=== PATIENT | male | born 1985 | race Caucasian/White ===

== ENCOUNTER 2024-12-18 06:56 | Emergency (ER) | payer MEDICAID ==
[~2024-12-18] VITALS: Ht 188 cm; Wt 92.7 kg
[2024-12-18] MEDS ORDERED: NO HOME MEDS (07:06)
--- NOTE | 2024-12-18 07:31 | Physician Documentation ---
History of Present Illness ~ Chief Complaint: 5150 Stated Complaint: 5150 Time Seen by MD: 07:17 Source: patient, other (5150 form) Mode of Arrival: Ambulatory, Police HPI Patient brought to the ED on a 5150 involuntary psychiatric hold, when he was found with some disorganized thinking, and aggressive, yelling in public. He was brought in by law enforcement, and was initially quite agitated but is now calm and cooperative. His only complaint is concern for his dog, which has been taken to [facility] and is being cared for. He has been made aware. No physical complaints at this time. Patient admits to a prior history of mental health issues, and tells me he has been off his medications for a month because they made him twitch. Pt exhibits tangential thinking during my interview with him, talking about cows and DNA and mistaken identities, and veers off in conversation to talk about how we are not helping him to find missing friends in another state. Pt demanding that we "give him his DNA report" and expressing paranoid ideation, stating that we need to check the DNA of all persons in the area. Medication Reconciliation Allergies: Coded Allergies: oxycodone (Unverified Allergy, Unknown, 12/18/24) Miscellaneous Medications Home Med List (No Home Medications), (Reported) Past Medical History Past Medical History: *PSYCH* (Pt admits to unspecified prior "mental health" diagnosis) Smoking Status: Never smoker Alcohol Use: None Drug Use: marijuana Physical Exam Vital Signs: Temperature: 98.0, Source: Oral, Heart Rate: 100, Respiratory Rate: 16, BP: 134/62, Pulse Oximetry: 95, Weight: 92.730 Oxygen Flow Rate: 0 Physical Exam General: Pt is awake, alert, oriented x4 in no acute distress and well appearing. He answers questions appropriately but tends to go off on nonsensical tangents. Head: Normocephalic and atraumatic. Eyes: Conjunctiva normal. ENT: Mucous membranes moist. Neck: Supple. Chest: Clear to auscultation bilaterally, without rales, rhonchi, or wheezes. There is no accessory muscle use or retractions. Cardiac: Regular rate and rhythm without murmurs, gallops or rubs. Palpation of the chest wall is normal. Abd: Soft, nondistended, nontender, with normoactive bowel sounds. No guarding or rebound. Extremities: Within normal limits without cyanosis, clubbing, or edema. Skin: [place], warm and dry with no significant rash appreciated. Neuro: Cranial nerves II-XII grossly intact. The gait is normal. Progress Results/Orders Results/Orders Orders - MATILDA WILLIS MD [facility] Rec (12/18/24 07:09) Close Observation Level (12/18/24 07:09) Covid19 Binax Poc Result Entry (12/18/24 07:09) Regular Diet (12/18/24 Lunch) Completed Orders - MATILDA WILLIS MD Cbc/Diff (12/18/24 07:09) Urinalysis (12/18/24 07:09) Drug Screen, Urine (12/18/24 07:09) Ethanol (12/18/24 07:09) TSH (12/18/24 07:09) BMP (12/18/24 07:09) Olanzapine Disint. Tablet (Zyprexa Zydis (12/18/24 08:55) Lorazepam Tablet (Ativan Tablet) (12/18/24 08:55) Diphenhydramine Capsule (Benadryl Capsul (12/18/24 08:55) Diphenhydramine Inj (Benadryl Inj.) (12/18/24 09:05) Olanzapine Im (Zyprexa I.M. Im On (12/18/24 09:05) Diazepam Inj (Valium Inj) (12/18/24 09:15) Diazepam Inj (Valium Inj) (12/18/24 12:10) Diphenhydramine Inj (Benadryl Inj.) (12/18/24 12:10) Vital Signs 12/18/24 12/18/24 12/18/24 12/18/24 06:58 07:06 07:10 09:25 Temp 98.0 98.0 98.2 Pulse 98 100 99 Resp 16 16 16 17 B/P (MAP) 134/62 134/62 (86) 153/82 (105) Pulse Ox 98 95 100 O2 Flow Rate 0 0 0 12/18/24 12/18/24 12/18/24 12/18/24 09:55 10:09 10:25 10:40 Temp 98.1 98.2 Pulse 96 Resp 18 16 18 16 B/P (MAP) 137/79 (98) Pulse Ox 98 12/18/24 12/18/24 12/18/24 12/18/24 10:55 11:35 12:05 12:20 Temp 98.0 98.0 Pulse 94 91 92 94 Resp 16 16 18 17 B/P (MAP) 139/80 (99) 141/78 (99) Pulse Ox 98 98 99 98 O2 Flow Rate 0 0 12/18/24 12/18/24 12/18/24 12/18/24 12:46 13:00 13:15 13:30 Pulse 94 89 91 88 Resp 16 16 14 16 Pulse Ox 98 98 99 99 O2 Flow Rate 0 0 0 0 Laboratory Tests Test 12/18/24 07:02 12/18/24 07:44 12/18/24 07:47 SARS-CoV-2 Antigen (Rapid) Negative White Blood Count 6.9 Red Blood Count 4.53 L Hemoglobin 14.1 Hematocrit 41.3 L Mean Corpuscular Volume 91.2 Mean Corpuscular Hemoglobin 31.0 Mean Corpuscular Hemoglobin Concent 34.0 Red Cell Distribution Width 13.9 Platelet Count 233 Mean Platelet Volume 7.5 Neutrophils (%) (Auto) 69.2 Lymphocytes (%) (Auto) 19.7 L Monocytes (%) (Auto) 9.7 Eosinophils (%) (Auto) 1.1 Basophils (%) (Auto) 0.3 Neutrophils # (Auto) 4.7 Lymphocytes # (Auto) 1.3 Monocytes # (Auto) 0.7 Eosinophils # (Auto) 0.1 Basophils # (Auto) 0.0 CBC Comment Sodium Level 139 Potassium Level 3.7 Chloride Level 107 Carbon Dioxide Level 24.1 Anion Gap 8 Blood Urea Nitrogen 11 Creatinine 1.17 H Estimated GFR/1.73 m2 69 BUN/Creatinine Ratio 9.4 L Glucose Level 103 Calcium Level 9.4 Albumin 4.2 Thyroid Stimulating Hormone (TSH) 1.27 Chemistry Comments Ethyl Alcohol Level < 10 Urine Specimen Description Cln catch midstream Urine Color Yellow Urine Clarity Clear Urine pH 6.0 Urine Specific [place] >=1.030 Urine Protein Negative Urine Glucose (UA) Negative Urine Ketones Negative Urine Occult Blood Negative Urine Nitrite Negative Urine Bilirubin Negative Urine Urobilinogen 0.2 Urine Leukocyte Esterase Negative Volume Urine Centrifuged 10 ml Urine Comment Urine Opiates Screen Negative Urine Methadone Screen Negative Urine Fentanyl Screen Negative Urine Barbiturates Screen Negative Urine Phencyclidine Screen Negative Urine Amphetamines Screen Negative Urine Benzodiazepines Screen Negative Urine Cocaine Screen Negative Urine Cannabinoids Screen Positive Drug Screen Comment Re-Evaluation Re-Evaluation #1: Re-Evaluation Time: 07:35 Progress Pt medically cleared for psychiatric evaluation and management Re-Evaluation #2: Re-Evaluation Time: 09:00 Progress Although patient was initially aggressive, I had been able to calm him and he was cooperative and accepting of oral medications. He is very labile, though, and shortly thereafter he became aggressive, abusive, and threatening, necessitating intramuscular medications for his protection and the protection of staff. Re-Evaluation #3: Re-Evaluation Time: 12:15 Progress Pt took quite some time to calm down but eventually rested quietly. He is now yelling and screaming profanities at staff and trying to flip his bed. He requires additional sedation for his safety. Re-Evaluation #4: Re-Evaluation Time: 17:46 Progress Pt has been calm and cooperative and resting since last dose of medications and has been seen by the Mental Health service Medical Decision Making Differential Diagnosis Pt with unspecified mental health history, off his meds, presenting with psychosis and extreme lability, aggressive in the ED requiring sedation and in need of stabilization on medications in order to ensure his ability to function after discharge. He will be transferred to the Mental Health service for further evaluation and management. Departure Disposition: [facility] Impression: Primary Impression: Psychosis Qualified Codes: F29 - Unspecified psychosis not due to a substance or known physiological condition Condition: Stable Referrals: NO PRIMARY CARE PROVIDER (PCP) Education Educated: Patient Educated regarding: diagnosis, treatment Signature Scribe Signature: Attestation: MATILDA WILLIS MD Dec 18, 2024 07:31
[2024-12-18 08:01] LABS: MEAN PLATELET VOLUME 7.5 FL (7.4-10.4); RED CELL DISTRIBUTION WIDTH 13.9 % (11.5-14.5)
[2024-12-18 08:08] LABS: LEUKOCYTE ESTERASE ,URINE NEGATIVE (Neg); NITRITES, URINE NEGATIVE (Neg); OCCULT BLOOD,URINE NEGATIVE (Neg)
[2024-12-18 08:12] LABS: URINE AMPHETAMINE SCREEN NEGATIVE (Neg); URINE BARBITUATE SCREEN NEGATIVE (Neg); URINE BENZODIAZEPINES SCREEN NEGATIVE (Neg); URINE CANNABINOID SCREEN POSITIVE (Neg); URINE COCAINE SCREEN NEGATIVE (Neg); URINE METHADONE SCREEN NEGATIVE (Neg); URINE OPIATE SCREEN NEGATIVE (Neg); URINE PHENCYCLIDINE SCREEN NEGATIVE (Neg)
[2024-12-18 08:21] LABS: CREATININE 1.17 MG/DL (0.60-1.10); ETHANOL < 10 MG/DL (<10); TOTAL CARBON DIOXIDE 24.1 MMOL/L (24-32); eCRCL 98 ML/MIN; eGFR 69 ML/MIN
[2024-12-18 08:23] LABS: UA COLLECTION TYPE CLN CATCH MIDSTREAM
[2024-12-18] MEDS: OLANZapine 5mg rapidly disint. tablet PO ONE (08:55)
[2024-12-18] MEDS: OLANZapine **IM** 10 mg inj. IM ONE (09:09)
[2024-12-18] MEDS: diazepam inj 5 MG/ML inj. IM ONE ×2 (09:15→12:10)
[2024-12-19 12:25] VITALS: BP 126/64; PULSE 64; RESP 16; TEMP 97.5; O2SAT 99
== END 2024-12-19 12:29 | disposition home or self-care (01) ==
LOC: ER 06:56 → EDBD 06:56 → ER 12-19 12:29
DX: F29 Unspecified psychosis not due to a substance or known physiological condition (principal); F12.90 Cannabis use, unspecified, uncomplicated; Z88.5 Allergy status to narcotic agent; Z20.822 Contact with and (suspected) exposure to COVID-19; Z79.899 Other long term (current) drug therapy
CPT/HCPCS: 36415; 80048; 80305; 80320; 81003; 84443; 85025; 87811; 96372; 99285; J1200; J3360; J3490